=== PATIENT | female | born 1960 | race Caucasian/White ===

== ENCOUNTER → 2020-09-21 | Outpatient (CLI) | payer BC ==
[~2020-09-21] MED LIST: AMIT100T2 PO; AMIT10TA6 PO; DEXL30CA2 PO; MELA1TAB16 PO; NF-ADDXR30 PO; PREN-98 PO; RNT150T PO; SOLI5TAB4 PO
--- NOTE | 2020-09-21 15:56 | Diagnostic Imaging Report ---
PROCEDURE: MR imaging cervical spine without contrast. TECHNIQUE: Multiplanar, multisequence MR imaging of the cervical spine was performed without contrast. INDICATION: Neck pain. History of prior cervical spine surgery. COMPARISON: none. FINDINGS: No acute fracture or dislocation is seen in the cervical spine. ACDF changes are visualized from C3 to C7. There is osseous fusion of the C5-C7 vertebral bodies. The bone marrow signal is unremarkable. No focal osseous lesions. The craniocervical junction is maintained. The cervical spinal cord demonstrates normal intrinsic signal. No epidural collections are seen. The included brainstem and posterior fossa have normal appearance. Multilevel degenerative changes are seen in the cervical spine with posterior disc bulges and uncovertebral arthropathy. C2-C3: Uncovertebral arthropathy and buckling of the ligamentum flavum results in mild spinal canal narrowing and no right and moderate left foraminal stenosis. C3-C4: Uncovertebral arthropathy results in no significant spinal canal narrowing and mild right and moderate left foraminal stenosis. C4-C5: Uncovertebral arthropathy results in no significant spinal canal narrowing and no significant foraminal narrowing. C5-C6: Uncovertebral arthropathy results in tubc-vq-pcygzyuv spinal canal narrowing and no significant foraminal narrowing. C6-C7: Uncovertebral arthropathy results in mild spinal canal narrowing and no significant foraminal narrowing. C7-T1: No significant spinal canal or foraminal stenosis. The soft tissues of neck are unremarkable. IMPRESSION: 1. No acute fracture or dislocation of the cervical spine. 2. Multilevel degenerative changes in the cervical spine, greatest at C2-C3, C3-C4, and C5-C6. 3. ACDF changes from C3 to C7. Osseous fusion is noted from the C5 to C7 vertebral bodies. Dictated by: Dictated on workstation # [id number]
--- NOTE | 2020-09-21 16:29 | Diagnostic Imaging Report ---
PROCEDURE: MRI lumbar spine. INDICATION: Low back pain. Previous lumbar instrumentation. COMPARISON: No relevant comparison, however. EXAMINATION: Multiple sequence noncontrasted lumbar MRI performed. FINDINGS: There is posterior fusion with bipedicular screws and vertical rods at the L3-L4 level. There is L4-L5 laminectomy and what appears to be solidly incorporated posterolateral bone graft. The conus appears unremarkable at the L1 vertebral body level. There is no acute intrathecal abnormality. No paravertebral mass, hemorrhage or fluid collection. There is no marrow edema. No bony destructive process. T12-L1: Osteophyte disc material, anterior greater than posterior, is present. The posterior disease is asymmetric, greater left. There is a mild to moderate left foraminal stenosis and mild central canal stenosis. The right foramen is widely patent. L1-L2: This level and disc are unremarkable. There is no stenosis. L2-L3: There is ligamenta flava thickening, facet arthrosis, disc bulge and endplate osteophytes resulting in moderate to severe central canal stenosis as well as moderate degrees of biforaminal narrowing, greater right. L3-L4: Canal decompressed by laminectomy. The neural foramina and recesses are widely patent as well. L4-L5: Canal decompressed by laminectomy and widely patent. Foramen and lateral recesses patent. L5-S1: No canal, foraminal or recess stenosis. IMPRESSION: Postsurgical changes without complicating feature. Spinal stenosis greatest at L2-L3 involving the central canal and neural foramina. Normal alignment. No acute appearing abnormality. No fluid collection. Dictated by: Dictated on workstation # [id number]
== END ==
LOC: RAD 13:57
PROVIDERS: ATTEND Physician Assistant
DX: M51.36 Other intervertebral disc degeneration, lumbar region (principal); M50.30 Other cervical disc degeneration, unspecified cervical region; M47.812 Spondylosis without myelopathy or radiculopathy, cervical region; M43.22 Fusion of spine, cervical region; M48.061 Spinal stenosis, lumbar region without neurogenic claudication; Z98.890 Other specified postprocedural states
CPT/HCPCS: 72141; 72148

== ENCOUNTER 2020-11-30 10:26 | Emergency (ER) | payer BC ==
[~2020-11-30] VITALS: Ht 157 cm; Wt 77.0 kg
[2020-11-30] MEDS ORDERED: fentaNYL INJ 100 MCG/2 ML AMP IVP ONE (11:00)
--- NOTE | 2020-11-30 11:02 | ED Fall/Injury ---
General Chief Complaint: Trauma-Non Activation Stated Complaint: BACK PAIN Nursing Triage Note: PT TO ROOM 7 PER W/C PT CO OF FALL FROM 4 FT LADDER BACKWARDS, C-COLLAR APPLIED IN ROOM UPON ARRIVAL. PT CO OF R HIP AND BACK PAIN 02/26. PT DENIES LOC, PT HAS ABRAIONS ON R [place] AREA Source: patient Exam Limitations: no limitations History of Present Illness Date Seen by Provider: Nov 30, 2020 Time Seen by Provider: 10:32 Initial Comments Patient to the ER by private conveyance in a wheelchair from home with significant other and chief complaint that she fell about an hour or so prior to arrival of the fourth rung of a ladder while trimming hedges landing on the corner of a trailer in the small of her back. She is now having some new tingling going down her right hip all the way to her right foot. She has a history of fusion of her lumbar spine and her neck by Dr. Stoll in [place]. She does not take anything for back pain routinely. She has not take anything for her pain today. She rates as a 10 out of 10. She is having no dysuria cough shortness of breath rib pain chest pain abdominal pain nausea or vomiting. She did not strike her head and is not on blood thinners. Allergies and Home Medications Allergies Coded Allergies: divalproex sodium (Verified Allergy, Unknown, 11/30/20) hydrocodone (Unverified Allergy, Unknown, 09/21/20) oxycodone (Unverified Allergy, Unknown, 09/21/20) zolpidem (Verified Allergy, Unknown, 11/30/20) Home Medications Amitriptyline Hcl 100 Mg Tablet, 1 EACH PO HS, (Reported) Amphet Asp/Amphet/D-Amphet 30 Mg Cap.sr.24h, 30 MG PO DAILY, (Reported) Cyclobenzaprine HCl 10 Mg Tablet, 10 MG PO Q8H PRN for SPASMS Prescribed by: NIKKY CARPIO on 11/30/20 1241 Hydrocodone/Acetaminophen 1 Each Tablet, 1 TAB PO Q6H PRN for PAIN-MODERATE (5- 7) Prescribed by: NIKKY CARPIO on 11/30/20 1241 Melatonin/Pyridoxine Hcl (B6) 1 Each Tablet, 1 EACH PO HS, (Reported) Naproxen 500 Mg Tablet, 500 MG PO BID Prescribed by: NIKKY CARPIO on 11/30/20 1241 Vit37/Iron/Folic Acid 1 Each Tab.chew, 1 EACH PO DAILY, (Reported) Solifenacin Succinate 5 Mg Tablet, 5 MG PO DAILY, (Reported) Patient Home Medication List Home Medication List Reviewed: Yes Review of Systems Review of Systems Constitutional: No chills, No diaphoresis Eyes: Denies Blindness, Denies Blurred Vision Ears, Nose, Mouth, Throat: denies ear pain, denies ear discharge Respiratory: No cough, No short of breath Cardiovascular: No chest pain, No edema Gastrointestinal: No abdominal pain, No constipation, No diarrhea Genitourinary: No discharge, No dysuria Musculoskeletal: No back pain, No joint pain Psychiatric/Neurological: Denies Anxiety, Denies Depressed All Other Systems Reviewed Negative Unless Noted: Yes Past Lmgpbrg-Ndvpou-Ydxsho Hx Patient Social History Tobacco Use?: No Use of E-Cig and/or Vaping dev: No Substance use?: No Alcohol Use?: No Past Medical History Reproductive Disorders: No PATIENT CARE NURSING ASSISTANT History: Hysterectomy Sexually Transmitted Disease: No Gastroesophageal Reflux Physical Exam Vital Signs Vital Signs - First Documented 11/30/20 10:51 Pulse 69 Resp 18 B/P (MAP) 127/74 (91) Pulse Ox 99 Capillary Refill : Less Than 3 Seconds Height, Weight, BMI Height: 5'1.00" Weight: 160lbs. 0.0oz. 72.266606ev; 31.00 BMI Method:Stated General Appearance: WD/WN, moderate distress HEENT: PERRL/EOMI, pharynx normal Neck: full range of motion, normal inspection Cardiovascular: normal peripheral pulses, regular rate, rhythm Respiratory: no respiratory distress, no accessory muscle use Gastrointestinal: normal bowel sounds, non tender, soft, no organomegaly Back: normal inspection, no vertebral tenderness, muscle spasm (Right paralumbar vertebral spasms), other (No step-off or deformity) Extremities: normal range of motion, non-tender, normal inspection, no pedal edema Neurologic/Psychiatric: alert, normal mood/affect, oriented x 3 Skin: normal color, warm/dry Shayy Coma Score Best Eye Response: (4) Open Spontaneously Best Verbal Response: (5) Oriented Best Motor Response: (6) Obeys Commands Shayy Total: 15 Progress/Results/Core Measures Results/Orders My Orders Orders - NIKKY CARPIO Fentanyl Inj (Sublimaze Injection) (11/30/20 11:00) Ct Head/Cervical Spine Wo (11/30/20 10:58) Ct Thoracic/Lumbar Spine Wo (11/30/20 10:58) Methylprednisolone Acetate Inj (Depo-Med (11/30/20 12:30) Medications Given in ED Current Medications Medications Dose Ordered Sig/Petty Route Start Time Stop Time Status Last Admin Dose Admin Fentanyl Citrate 50 mcg ONCE ONCE IVP 11/30/20 11:00 11/30/20 11:01 DC 11/30/20 11:05 50 MCG Methylprednisolone Acetate 40 mg ONCE ONCE IM 11/30/20 12:30 11/30/20 12:31 DC 11/30/20 12:39 40 MG Vital Signs/I&O 11/30/20 11/30/20 10:51 12:47 Pulse 69 80 Resp 18 18 B/P (MAP) 127/74 (91) 97/60 (91) Pulse Ox 99 99 Blood Pressure Mean: 91 Progress Progress Note #1: Time: 11:01 Progress Note 50 of fentanyl, urinalysis to observe for hematuria and CT of the head and C- spine as well as the thoracolumbar spine. Progress Note #2: Time: 12:15 Progress Note C-collar cleared clinically and radiographically. Her pain in her low back right side is coming back. Toradol IV, point injection of steroid and Marcaine. Diagnostic Imaging Diagonstic Imaging: CT Plain Films/CT/US/NM/MRI: c-spine, head Comments [facility], [place] NAME: MARYCHUY ROSENTHAL [facility] REC#: [id number] PT STATUS: REG ER : 1960 PHYSICIAN: NIKKY CARPIO MD ADMIT DATE: 11/30/20/ER Draft Date of Exam:11/30/20 CT HEAD/CERVICAL SPINE WO PROCEDURE: CT head and CT cervical spine without contrast. TECHNIQUE: Multiple contiguous axial images were obtained through the brain and cervical spine without the use of intravenous contrast. Sagittal and coronal reformations through the cervical spine were then performed. Auto Exposure Controls were utilized during the CT exam to meet ALARA standards for radiation dose reduction. INDICATION: Four-foot fall, with head and neck pain. COMPARISON: Correlation can be made with a cervical spinal MRI of 09/21/2020. No other relevant comparison. CT HEAD: There is no hemorrhage, hydrocephalus, edema, mass, mass effect, nor evidence for an elevation of the intracranial pressures. The basilar cisterns are patent, and there is no sulcal effacement. The rick-white matter differentiations are maintained. Orbits, sinuses, and calvarium are nonacute. There is no pneumocephalus. CT CERVICAL SPINE: Anterior plate and screws transfix the C3-C4 level. Without residual metallic hardware, there is a solid vertebral body fusion C4 through C7. Alignment across, above, and below the fusion mass is anatomic, and when correlated with previous MRI, the postoperative spine showed no appreciable change. No fracture or paraspinal hemorrhage. The central skull base appeared intact. The craniocervical relationship appeared normal. Thoracic inlet appeared unremarkable. Endplate osteophytes and uncovertebral joint spurring result in multilevel chronic canal stenoses throughout the postoperative mid to lower cervical spine. IMPRESSION: CT HEAD: No hemorrhage, fracture, or acute finding. CT CERVICAL SPINE: Stable postoperative findings without failure or complicating feature. Chronic bony overgrowths result in multilevel stable chronic canal stenoses without fracture or malalignment. Dictated on workstation # [id number] Dict: 11/30/20 1135 Trans: 11/30/20 1145 [id number] Interpreted by: AJ MORAN Electronically signed by: Reviewed: Reviewed by Ms Diagonstic Imaging: CT Plain Films/CT/US/NM/MRI: other (Thoracolumbar spine) Comments [facility], [place] NAME: MARYCHUY ROSENTHAL [facility] REC#: [id number] PT STATUS: REG ER : 1960 PHYSICIAN: NIKKY CARPIO MD ADMIT DATE: 11/30/20/ER Draft Date of Exam:11/30/20 CT THORACIC/LUMBAR SPINE WO PROCEDURE: CT thoracic and lumbar spine without contrast. TECHNIQUE: Multiple contiguous axial images were obtained through the thoracic and lumbar spine without the use of intravenous contrast. Sagittal and coronal reformations were then performed.All CT scans use one or more of the following dose optimizing techniques: automated exposure control, MA and/or KvP adjustment based on a patient size and exam type, or iterative reconstruction. INDICATION: Fall, mid and lower back pain, lumbar fusion. COMPARISON: None. FINDINGS: Alignment of the thoracolumbar column is normal. There is no subluxation or fracture. No osseous lesion is seen. Diffuse degenerative changes are present. Stable appearing laminectomy and fusion is seen at L3-L4, L4-L5 and L5-S1. Orthopedic hardware is well seated at the L3-L4 level. The SI joints are symmetric. IMPRESSION: No traumatic malalignment or fracture. Dictated on workstation # [id number] Dict: 11/30/20 1136 Trans: 11/30/20 1141 [id number] Interpreted by: NARCISA HENDRIX Electronically signed by: Reviewed: Reviewed by Me Departure Impression Primary Impression: Fall from ladder Qualified Codes: W11.XXXA - Fall on and from ladder, initial encounter Additional Impression: Lumbago with sciatica, right side Qualified Codes: M54.41 - Lumbago with sciatica, right side Disposition: 01 HOME, SELF-CARE Condition: Stable Departure-Patient Inst. Decision time for Depature: 12:20 Referrals: [facility] (PCP) Primary Care Physician DURGA GOEL (Family) Primary Care Physician Patient Instructions: Sciatica (DC), Low Back Pain (DC), Back Stretches on Floor Add. Discharge Instructions: Tylenol 1000 mg every 8 hours as necessary for pain. Naproxen 500 mg twice a day until the back pain resolves. Hydrocodone 1 tablet every 6 hours as necessary for breakthrough pain. Will cause constipation and drowsiness. MiraLAX or Colace are recommended to stay regular. Ice applied to your back 20 minutes on every 2 hours for the first 2 days is recommended. Topical creams such as icy hot or Biofreeze can be helpful. Back braces may help you when you are up and mobile. Consider following up with physical therapy by calling for an appointment for reevaluation at [phone]. Follow-up in the next 1 to 2 weeks with your primary care doctor. Cyclobenzaprine 1 tablet every 8 hours as necessary for muscle spasms in your back. Do not mix with hydrocodone. All discharge instructions reviewed with patient and/or family. Voiced understanding. Scripts Naproxen (Naprosyn) 500 Mg Tablet 500 MG PO BID for 14 Days, #30 TAB 0 Refills Prov: NIKKY CARPIO 11/30/20 Cyclobenzaprine HCl (Cyclobenzaprine HCl) 10 Mg Tablet 10 MG PO Q8H PRN for SPASMS, #15 TAB 0 Refills Prov: NIKKY CARPIO 11/30/20 Hydrocodone/Acetaminophen (Hydrocodone-Acetamin 5-325 mg) 1 Each Tablet 1 TAB PO Q6H PRN for PAIN-MODERATE (5-7), #12 TAB 0 Refills Prov: NIKKY CARPIO 11/30/20 Work/School Note: Work Release Form Date Seen in the Emergency Department: Nov 30, 2020 Return to Work: Dec 05, 2020 Restrictions: No Restrictions NIKKY CARPIO Nov 30, 2020 11:02
--- NOTE | 2020-11-30 11:42 | Diagnostic Imaging Report ---
PROCEDURE: CT thoracic and lumbar spine without contrast. TECHNIQUE: Multiple contiguous axial images were obtained through the thoracic and lumbar spine without the use of intravenous contrast. Sagittal and coronal reformations were then performed.All CT scans use one or more of the following dose optimizing techniques: automated exposure control, MA and/or KvP adjustment based on a patient size and exam type, or iterative reconstruction. INDICATION: Fall, mid and lower back pain, lumbar fusion. COMPARISON: None. FINDINGS: Alignment of the thoracolumbar column is normal. There is no subluxation or fracture. No osseous lesion is seen. Diffuse degenerative changes are present. Stable appearing laminectomy and fusion is seen at L3-L4, L4-L5 and L5-S1. Orthopedic hardware is well seated at the L3-L4 level. The SI joints are symmetric. IMPRESSION: No traumatic malalignment or fracture. Dictated by: Dictated on workstation # [id number]
--- NOTE | 2020-11-30 11:45 | Diagnostic Imaging Report ---
PROCEDURE: CT head and CT cervical spine without contrast. TECHNIQUE: Multiple contiguous axial images were obtained through the brain and cervical spine without the use of intravenous contrast. Sagittal and coronal reformations through the cervical spine were then performed. Auto Exposure Controls were utilized during the CT exam to meet ALARA standards for radiation dose reduction. INDICATION: Four-foot fall, with head and neck pain. COMPARISON: Correlation can be made with a cervical spinal MRI of 09/21/2020. No other relevant comparison. CT HEAD: There is no hemorrhage, hydrocephalus, edema, mass, mass effect, nor evidence for an elevation of the intracranial pressures. The basilar cisterns are patent, and there is no sulcal effacement. The rick-white matter differentiations are maintained. Orbits, sinuses, and calvarium are nonacute. There is no pneumocephalus. CT CERVICAL SPINE: Anterior plate and screws transfix the C3-C4 level. Without residual metallic hardware, there is a solid vertebral body fusion C4 through C7. Alignment across, above, and below the fusion mass is anatomic, and when correlated with previous MRI, the postoperative spine showed no appreciable change. No fracture or paraspinal hemorrhage. The central skull base appeared intact. The craniocervical relationship appeared normal. Thoracic inlet appeared unremarkable. Endplate osteophytes and uncovertebral joint spurring result in multilevel chronic canal stenoses throughout the postoperative mid to lower cervical spine. IMPRESSION: CT HEAD: No hemorrhage, fracture, or acute finding. CT CERVICAL SPINE: Stable postoperative findings without failure or complicating feature. Chronic bony overgrowths result in multilevel stable chronic canal stenoses without fracture or malalignment. Dictated by: Dictated on workstation # [id number]
[2020-11-30] MEDS ORDERED: CYCL10TA9 PO ×2 (12:23→12:41)
[2020-11-30] MEDS ORDERED: ACHD5005 PO ×2 (12:23→12:41)
[2020-11-30] MEDS ORDERED: methylPREDNISolone 40 MG/ML (DEPO MEDROL) VIAL IM ONE (12:30)
[2020-11-30] MEDS ORDERED: NAPR-1071 PO (12:41)
[2020-11-30 12:47] VITALS: BP 97/60
== END 2020-11-30 12:47 | disposition home or self-care (01) ==
LOC: EDUNIT# 10:26 → ER 10:28
DX: M54.41 Lumbago with sciatica, right side (principal); Z88.5 Allergy status to narcotic agent; W11.XXXA Fall on and from ladder, initial encounter
CPT/HCPCS: 70450; 72125; 72128; 72131

== ENCOUNTER 2021-01-12 11:27 | Emergency (ER) | payer BC, MEDICARE ==
[~2021-01-12] VITALS: Ht 157.4 cm; Wt 72.5 kg
[~2021-01-12 11:27] MED LIST changes: +ACHD5005 PO; +CYCL10TA9 PO; +NAPR-1071 PO
[2021-01-12] MEDS ORDERED: KETOROLAC 30 MG/ML VIAL IVP ONE (11:45)
[2021-01-12] MEDS ORDERED: ASPIRIN 81 MG CHEW (CHILDREN'S ASA) PO ONE (11:45)
--- NOTE | 2021-01-12 11:47 | ED Chest Pain ---
General Chief Complaint: Chest Pain Stated Complaint: CP Source: patient Exam Limitations: no limitations (KYLIE NAILS APRN) History of Present Illness Date Seen by Provider: Jan 12, 2021 Time Seen by Provider: 11:46 Initial Comments To ER with chest pain off and on for a month. She was diagnosed with pleurisy and given prednisone and hydrocodone. She has not been taking the hydrocodone. Pain comes at random. Nothing makes it better and nothing makes it worse. She is a non-smoker. No history of high cholesterol. Timing/Duration: intermittent Severity/Quality: moderate Location: central Radiation: no radiation Activities at Onset: none ASA po NUCLEAR EQUIPMENT TEST ENGINEER: No NTG SL NUCLEAR EQUIPMENT TEST ENGINEER: No Associated Symptoms: shortness of breath (KYLIE NAILS APRN) Allergies and Home Medications Allergies Coded Allergies: divalproex sodium (Verified Allergy, Unknown, 11/30/20) hydrocodone (Unverified Allergy, Unknown, 09/21/20) oxycodone (Unverified Allergy, Unknown, 09/21/20) zolpidem (Verified Allergy, Unknown, 11/30/20) Home Medications Amitriptyline Hcl 100 Mg Tablet, 1 EACH PO HS, (Reported) Amphet Asp/Amphet/D-Amphet 30 Mg Cap.sr.24h, 30 MG PO DAILY, (Reported) Cyclobenzaprine HCl 10 Mg Tablet, 10 MG PO Q8H PRN for SPASMS Prescribed by: NIKKY CARPIO on 11/30/20 1241 Hydrocodone/Acetaminophen 1 Each Tablet, 1 TAB PO Q6H PRN for PAIN-MODERATE (5- 7) Prescribed by: NIKKY CARPIO on 11/30/20 1241 Melatonin/Pyridoxine Hcl (B6) 1 Each Tablet, 1 EACH PO HS, (Reported) Naproxen 500 Mg Tablet, 500 MG PO BID Prescribed by: NIKKY CARPIO on 11/30/20 1241 Vit37/Iron/Folic Acid 1 Each Tab.chew, 1 EACH PO DAILY, (Reported) Solifenacin Succinate 5 Mg Tablet, 5 MG PO DAILY, (Reported) Patient Home Medication List Home Medication List Reviewed: Yes (KYLIE NAILS APRN) Review of Systems Review of Systems Constitutional: see HPI EENTM: No Symptoms Reported Respiratory: No Symptoms Reported Cardiovascular: See HPI, Chest Pain Gastrointestinal: See HPI Genitourinary: No Symptoms Reported Musculoskeletal: no symptoms reported Skin: no symptoms reported Psychiatric/Neurological: No Symptoms Reported Endocrine: No Symptoms Reported Hematologic/Lymphatic: No Symptoms Reported (KYLIE NAILS APRN) Past Mgqjnno-Pkfxlt-Lsvmzu Hx Past Medical History Reproductive Disorders: No SENIOR SUPPORT ENGINEER History: Hysterectomy Sexually Transmitted Disease: No Gastroesophageal Reflux (KYLIE NAILS APRN) Physical Exam Vital Signs Vital Signs - First Documented (JEN BOYKIN MD) Vital Signs Capillary Refill : (KYLIE NAILS APRN) Height, Weight, BMI Height: 5'1.00" Weight: 160lbs. 0.0oz. [id number]; 31.00 BMI Method:Stated General Appearance: No Apparent Distress, WD/WN Neck: Full Range of Motion, Normal Inspection Respiratory: Normal Breath Sounds, No Accessory Muscle Use, No Respiratory Distress Cardiovascular: Regular Rate, Rhythm, Normal Peripheral Pulses Gastrointestinal: Normal Bowel Sounds, Non Tender, Soft Extremity: Normal Capillary Refill, Normal Inspection Neurologic/Psychiatric: Alert, Oriented x3 Skin: Normal Color, Warm/Dry (KYLIE NAILS APRN) Progress/Results/Core Measures Results/Orders Lab Results Laboratory Tests Test 01/12/21 11:33 01/12/21 11:40 01/12/21 13:59 Range/Units D-Dimer 0.39 0.00-0.49 UG/ML B-Type Natriuretic Peptide 38.0 <100.0 PG/ML White Blood Count 8.4 4.3-11.0 10^3/uL Red Blood Count 4.43 3.80-5.11 10^6/uL Hemoglobin 12.4 11.5-16.0 g/dL Hematocrit 39 35-52 % Mean Corpuscular Volume 88 80-99 fL Mean Corpuscular Hemoglobin 28 25-34 pg Mean Corpuscular Hemoglobin Concent 32 32-36 g/dL Red Cell Distribution Width 15.0 H 10.0-14.5 % Platelet Count 302 130-400 10^3/uL Mean Platelet Volume 10.5 9.0-12.2 fL Immature Granulocyte % (Auto) 0 % Neutrophils (%) (Auto) 62 42-75 % Lymphocytes (%) (Auto) 27 12-44 % Monocytes (%) (Auto) 7 0-12 % Eosinophils (%) (Auto) 4 0-10 % Basophils (%) (Auto) 1 0-10 % Neutrophils # (Auto) 5.1 1.8-7.8 10^3/uL Lymphocytes # (Auto) 2.3 1.0-4.0 10^3/uL Monocytes # (Auto) 0.6 0.0-1.0 10^3/uL Eosinophils # (Auto) 0.3 0.0-0.3 10^3/uL Basophils # (Auto) 0.1 0.0-0.1 10^3/uL Immature Granulocyte # (Auto) 0.0 0.0-0.1 10^3/uL Prothrombin Time 12.3 12.2-14.7 SEC INR Comment 0.9 0.8-1.4 Activated Partial Thromboplast Time 30 24-35 SEC Sodium Level 138 135-145 MMOL/L Potassium Level 3.6 3.6-5.0 MMOL/L Chloride Level 105 98-107 MMOL/L Carbon Dioxide Level 26 21-32 MMOL/L Anion Gap 7 5-14 MMOL/L Blood Urea Nitrogen 14 7-18 MG/DL Creatinine 0.85 0.60-1.30 MG/DL Estimat Glomerular Filtration Rate 69 BUN/Creatinine Ratio 16 Glucose Level 88 70-105 MG/DL Calcium Level 8.8 8.5-10.1 MG/DL Corrected Calcium 9.0 8.5-10.1 MG/DL Magnesium Level 1.9 1.6-2.4 MG/DL Total Bilirubin 0.4 0.1-1.0 MG/DL Aspartate Amino Transf (AST/SGOT) 23 5-34 U/L Alanine Aminotransferase (ALT/SGPT) 19 0-55 U/L Alkaline Phosphatase 85 40-136 U/L Myoglobin 37.7 10.0-92.0 NG/ML Troponin I < 0.028 < 0.028 <0.028 NG/ML C-Reactive Protein High Sensitivity 0.51 H 0.00-0.50 MG/DL Total Protein 7.3 6.4-8.2 GM/DL Albumin 3.8 3.2-4.5 GM/DL (JEN BOYKIN MD) My Orders Orders - JEN BOYKIN MD Troponin I (01/12/21 11:29) Cbc With Automated Diff (01/12/21 11:29) Magnesium (01/12/21 11:29) Chest 1 View, Ap/Pa Only (01/12/21 11:29) Ekg Tracing (01/12/21 11:29) Comprehensive Metabolic Panel (01/12/21 11:29) Myoglobin Serum (01/12/21 11:29) Protime With Inr (01/12/21 11:29) Partial Thromboplastin Time (01/12/21 11:29) O2 (01/12/21 11:29) Monitor-Rhythm Ecg Trace Only (01/12/21 11:29) Ed Iv/Invasive Line Start (01/12/21 11:29) (JEN BOYKIN MD) Vital Signs/I&O 01/12/21 01/12/21 01/12/21 11:30 11:30 15:28 Temp 35.1 35.1 Pulse 72 75 Resp 20 20 B/P (MAP) 150/97 (114) 120/84 (114) Pulse Ox 100 100 O2 Delivery Room Air Room Air Room Air (JEN BOYKIN MD) Departure Communication (Admissions) EKG shows sinus rhythm no ST segment changes no ectopy normal intervals (KYLIE NAILS APRN) Impression Primary Impression: Chest pain Disposition: 01 HOME, SELF-CARE Condition: Stable Departure-Patient Inst. Decision time for Depature: 15:15 (KYLIE NAILS APRN) Referrals: [facility] [place] (PCP) Primary Care Physician DURGA GOEL (Family) Primary Care Physician DURGA BEATTY JR, MD Patient Instructions: Chest Pain (DC) Add. Discharge Instructions: 1. See Dr Beatty at 10:45 am on Saturday. All discharge instructions reviewed with patient and/or family. Voiced unders tanding. ATTENDING PHYSICIAN NOTE: I was physically present as attending physician in the emergency department during the care of this patient, but I was not directly involved in the decision making or delivery of care for this patient. (JEN BOYKIN MD) KYLIE NAILS APRN Jan 12, 2021 11:47 JEN BOYKIN MD Jan 14, 2021 18:06
[2021-01-12 11:50] LABS: BASOPHILS # (AUTO) 0.1 10^3/uL (0.0-0.1); BASOPHILS % (AUTO) 1 % (0-10); EOSINOPHILS # (AUTO) 0.3 10^3/uL (0.0-0.3); EOSINOPHILS % (AUTO) 4 % (0-10); HEMATOCRIT 39 % (35-52); HEMOGLOBIN 12.4 g/dL (11.5-16.0); LYMPHOCYTES # (AUTO) 2.3 10^3/uL (1.0-4.0); LYMPHOCYTES % (AUTO) 27 % (12-44); MEAN CORPUSCULAR HEMOGLOBIN 28 pg (25-34); MEAN CORPUSCULAR HGB CONC 32 g/dL (32-36); MEAN CORPUSCULAR VOLUME 88 fL (80-99); MEAN PLATELET VOLUME 10.5 fL (9.0-12.2); MONOCYTES # (AUTO) 0.6 10^3/uL (0.0-1.0); MONOCYTES % (AUTO) 7 % (0-12); NEUTROPHILS # (AUTO) 5.1 10^3/uL (1.8-7.8); NEUTROPHILS % (AUTO) 62 % (42-75); PLATELET COUNT 302 10^3/uL (130-400); WHITE BLOOD COUNT 8.4 10^3/uL (4.3-11.0)
--- NOTE | 2021-01-12 12:04 | Diagnostic Imaging Report ---
EXAMINATION: Chest 1 view HISTORY: Chest pain COMPARISON: 12/06/2013. FINDINGS: The lungs are clear without edema or pneumonia. No pleural effusion or pneumothorax. Heart size is normal. IMPRESSION: 1. Clear lungs. Dictated by: Dictated on workstation # [id number]
[2021-01-12 12:07] LABS: INR 0.9 (0.8-1.4); PROTHROMBIN TIME PATIENT 12.3 SEC (12.2-14.7)
[2021-01-12 12:18] LABS: ALBUMIN 3.8 GM/DL (3.2-4.5); BILIRUBIN,TOTAL 0.4 MG/DL (0.1-1.0); CALCIUM 8.8 MG/DL (8.5-10.1); CREATININE SERUM 0.85 MG/DL (0.60-1.30); MAGNESIUM 1.9 MG/DL (1.6-2.4); POTASSIUM 3.6 MMOL/L (3.6-5.0); TOTAL PROTEIN 7.3 GM/DL (6.4-8.2)
[2021-01-12] MEDS ORDERED: LIDOCAINE 2% VISCOUS 15 ML UDC PO ONE (14:00)
[2021-01-12] MEDS ORDERED: ANTACID SUSP 30 ML UDC (MYLANTA) PO ONE (14:00)
[2021-01-12] MEDS ORDERED: fentaNYL INJ 100 MCG/2 ML AMP IVP ONE (14:30)
[2021-01-12 15:28] VITALS: BP 120/84
== END 2021-01-12 15:28 | disposition home or self-care (01) ==
LOC: EDUNIT# 11:27 → ER 11:29
DX: R07.9 Chest pain, unspecified (principal)
CPT/HCPCS: 36415; 71045; 80053; 83735; 83874; 83880; 84484; 85025; 85379; 85610; 85730; 86141; 93005; 93041

== ENCOUNTER → 2021-01-17 | Outpatient (CLI) | payer BC | LOC: CARD 11:30 | PROVIDERS: ATTEND Internal Medicine Cardiovascular Disease | DX: I51.7 Cardiomegaly (principal) | CPT/HCPCS: 93306 ==

== ENCOUNTER → 2021-01-19 | Outpatient (CLI) | payer BC ==
[~2021-01-19] VITALS: Ht 157 cm; Wt 75.0 kg
[~2021-01-19] MED LIST changes: +CATHETER FLUSH 10 ML SYR IV PRN; +REGADENOSON 0.4 MG/5 ML SYR (LEXISCAN) IV ONE
[2021-01-19 08:22] VITALS: BP 98/72
--- NOTE | 2021-01-19 10:24 | NUCLEAR STRESS TEST ---
REGADENOSON NUCLEAR STRESS Date of procedure: 01/19/2021. Primary care provider: MAGUI Reynoso. Admitting physician: Dereck Beatty Jr., MD. INDICATION: Abnormal ECG. BASELINE ELECTROCARDIOGRAM: Sinus rhythm with low voltage in the precordial leads. STRESS TEST PROCEDURE: This was initially intended to be a treadmill nuclear stress test but the patient could not obtain her target heart rate and therefore was changed over to a pharmacologic stress test. The patient was administered 0.4 mg of intravenous Regadenoson. The resting heart rate was 68 bpm and the peak heart rate was 100 bpm. The resting blood pressure was 100/67 mmHg and the minimum blood pressure was 98/66 mmHg. This represents a normal heart rate and a normal blood pressure response to Regadenoson. The test was stopped due to the protocol. There was no chest discomfort during the test. There were no arrhythmias during the test. There were no significant stress induced electrocardiogram changes. NUCLEAR PROCEDURE: The patient was administered 10.7 mCi of intravenous technetium 99m Tetrofosmin at rest for the rest images. The patient was subsequently administered 29.6 mCi of intravenous technetium 99m Tetrofosmin at peak stress for the stress images. Following an appropriate wait after each injection, imaging was obtained. The images were subsequently processed and reformatted in the usual views. Gated imaging was obtained. The image quality was adequate. CT attenuation correction was used as a adjunct to standard imaging. Both the corrected and uncorrected images were reviewed for interpretation. NUCLEAR RESULTS: There was normal myocardial perfusion in all segments without evidence of infarction or ischemia. There was normal left ventricular chamber size with an end-diastolic volume of 32 mL and an end-systolic volume of 11 mL. There was no evidence of transient ischemic dilatation. The TID ratio was 1.08. There was normal wall motion in all segments with a calculated ejection fraction of 65%. IMPRESSION: 1. Normal heart rate and blood pressure response to regadenoson. 2. There was no chest discomfort, arrhythmias, or electrocardiogram changes during the test. 3. There was normal myocardial perfusion in all segments without evidence of infarction or ischemia. 4. There was normal wall motion in all segments with a calculated ejection fraction of 65%. Certain portions of this document may have been dictated utilizing voice recognition technology. Inherent to this technology, typographical and gra mmatical errors may exist. As much as I am diligent to identify and correct these mistakes, some errors may remain in the document. DERECK BEATTY JR, MD Jan 19, 2021 10:24
== END ==
LOC: CARD 07:45
PROVIDERS: ATTEND Internal Medicine Cardiovascular Disease
DX: R94.31 Abnormal electrocardiogram [ECG] [EKG] (principal)
CPT/HCPCS: 78452; 93017